=== PATIENT | male | born 1980 | race Caucasian/White ===

== ENCOUNTER 2016-09-15 21:56 | Inpatient (IN) ==
[~2016-09-15 21:56] MED LIST: *HR* Etomidate 40 MG/20 ML VIAL IVP ONE; *HR* Rocuronium Bromide 50 MG/5 ML VIAL IVP ONE
[2016-09-15] MEDS ORDERED: 0.9 % Sodium Chloride 1,000 ML ONE (22:15)
[2016-09-15] MEDS ORDERED: 0.9 % Sodium Chloride 1,000 ML IVC ONE ×2 (22:20→22:38)
[2016-09-15 22:28] LABS: Basophils # 0.1 K/mcL (0.0-0.2); Eosinophils # 0.2 K/mcL (0.0-0.6); Eosinophils % 1.8 %; Hematocrit 44.7 % (37.5-50.1); Hemoglobin 15.5 g/dL (12.9-16.9); Immature Granulocytes % 0.8 % (0-4); Lymphocytes # 4.3 K/mcL (0.6-4.6); Lymphocytes % 42.8 %; Mean Corpuscular HGB Conc 34.7 g/dL (31.6-35.5); Mean Corpuscular Hemoglobin 31.2 pg (28.0-33.3); Mean Corpuscular Volume 89.9 fL (83.0-100.0); Mean Platelet Volume 9.4 fL (9.4-12.4); Monocytes # 0.8 K/mcL (0.0-1.3); Neutrophils # 4.6 K/mcL (1.6-8.9); Platelet Count 206 K/mcL (140-400); Red Blood Count 4.97 M/mcL (4.19-5.50); Red Cell Distribution Width 13.1 % (11.5-14.5); Segmented Neutrophils % 45.6 %
--- NOTE | 2016-09-15 22:29 | Emergency Department Note ---
Overdose - [facility] Narrative Medical decision making narrative: 36-year-old male presents to the ER unresponsive after being found at home. Prior history of drug use. There was a needle at the scene as per EMS. He had an initial GCS of 3 here. Narcan was given without improvement of his symptoms. Patient was intubated for neurologic exam and agonal respirations. His head CT is unremarkable for acute findings. EKG is nonischemic. He was acidotic with a pH of 7.17 and a lactic acidosis of 5.1. He received 2 L of normal saline in the ER and started on LR for maintenance fluid. UDS shows marijuana. Intoxicated with an alcohol level of 277. Patient admitted to the ICU for further management. - Lab Data Lab results reviewed: Yes I reviewed the patient's lab results. Result diagrams: 09/16/16 00:09 09/15/16 22:05 Lab Results 09/15/16 09/15/16 09/15/16 Range/Units 22:05 22:05 22:05 WBC 10.1 (4.3-11.1) K/mcL RBC 4.97 (4.19-5.50) M/mcL Hgb 15.5 (12.9-16.9) g/dL Hct 44.7 (37.5-50.1) % MCV 89.9 (83.0-100.0) fL MCH 31.2 (28.0-33.3) pg MCHC 34.7 (31.6-35.5) g/dL RDW 13.1 (11.5-14.5) % Plt Count 206 (140-400) K/mcL MPV 9.4 (9.4-12.4) fL Immature Gran % 0.8 (0-4) % Seg Neutrophils % 45.6 % Lymphocytes % 42.8 % Monocytes % 8.0 % Eosinophils % 1.8 % Basophils % 1.0 % Neutrophils # 4.6 (1.6-8.9) K/mcL Lymphocytes # 4.3 (0.6-4.6) K/mcL Monocytes # 0.8 (0.0-1.3) K/mcL Eosinophils # 0.2 (0.0-0.6) K/mcL Basophils # 0.1 (0.0-0.2) K/mcL ABG pH (7.32-7.45) pH Units ABG pCO2 (35-45) mmHg ABG pO2 (85-104) mmHg ABG HCO3 (21-27) mEQ/L ABG Total CO2 (20-26) mEq/L ABG O2 Saturation (95-98) % ABG Base Excess (-2.0 to 3.0) mEq/L Carboxyhemoglobin (0-5) % Blood Gas Modality Inspired O2 % Sodium 135 L (136-145) mEq/L Potassium 3.2 L (3.5-4.5) mEq/L Chloride 102 (98-109) mEq/L Carbon Dioxide 16 L (19-29) mEq/L BUN 8 (8-26) mg/dL Creatinine 0.80 (0.72-1.25) mg/dL Est GFR ( Amer) > 60 (> 60) Est GFR (Non-Af Amer) > 60 (> 60) BUN/Creatinine Ratio 10 (6-26) Glucose 117 H (70-99) mg/dL Calculated Osmolality 279 L (280-300) Lactic Acid 5.1 H* (0.5-2.2) mmol/L Calcium 8.6 (8.6-10.8) mg/dL Total Bilirubin 0.5 (0.2-1.2) mg/dL Direct Bilirubin 0.2 (0.0-0.5) mg/dL Indirect Bilirubin 0.3 (0.0-1.2) mg/dL AST 33 (5-34) Units/L ALT 16 (0-55) Units/L Alkaline Phosphatase 73 (38-126) Units/L Serum Total Protein 7.3 (6.0-8.3) g/dL Albumin 3.7 (3.5-5.0) g/dL Globulin 3.6 H (2.4-3.5) g/dL Albumin/Globulin Ratio 1.0 L (1.1-2.2) Urine Color (Yellow) Urine Clarity (Clear) Urine pH (5.0-8.0) pH Units Ur Specific [place] (1.010-1.025) Urine Protein (Neg-Trace) mg/dL Urine Glucose (UA) (Normal) mg/dL Urine Ketones (Negative) mg/dL Urine Blood (Negative) Urine Nitrite (Negative) Urine Bilirubin (Negative) Urine Urobilinogen (Normal) mg/dL Ur Leukocyte Esterase (Negative) Salicylates < 5.0 L (15-30) mg/dL Urine Opiates Screen (Cpmdtv=360) ng/mL Acetaminophen < 1.0 L (10-30) mcg/mL Ur Barbiturates Screen (Bwggwn=216) ng/mL Ur Phencyclidine Scrn (Cutoff=25) ng/mL Ur Amphetamines Screen (Uufcgj=6199) ng/mL U Benzodiazepines Scrn (Glfrqw=419) ng/mL Urine Cocaine Screen (Cutoff= 300) ng/mL U Marijuana (THC) Screen (Cutoff = 50) ng/mL Ethyl Alcohol 277 H (0-10) mg/dL Hep Bs Antigen (Nonreactive) HIV Ag/Ab Combo Qual (Nonreactive) 09/15/16 09/15/16 09/15/16 Range/Units 22:05 22:05 22:15 WBC (4.3-11.1) K/mcL RBC (4.19-5.50) M/mcL Hgb (12.9-16.9) g/dL Hct (37.5-50.1) % MCV (83.0-100.0) fL MCH (28.0-33.3) pg MCHC (31.6-35.5) g/dL RDW (11.5-14.5) % Plt Count (140-400) K/mcL MPV (9.4-12.4) fL Immature Gran % (0-4) % Seg Neutrophils % % Lymphocytes % % Monocytes % % Eosinophils % % Basophils % % Neutrophils # (1.6-8.9) K/mcL Lymphocytes # (0.6-4.6) K/mcL Monocytes # (0.0-1.3) K/mcL Eosinophils # (0.0-0.6) K/mcL Basophils # (0.0-0.2) K/mcL ABG pH (7.32-7.45) pH Units ABG pCO2 (35-45) mmHg ABG pO2 (85-104) mmHg ABG HCO3 (21-27) mEQ/L ABG Total CO2 (20-26) mEq/L ABG O2 Saturation (95-98) % ABG Base Excess (-2.0 to 3.0) mEq/L Carboxyhemoglobin 7.1 H (0-5) % Blood Gas Modality Inspired O2 % Sodium (136-145) mEq/L Potassium (3.5-4.5) mEq/L Chloride (98-109) mEq/L Carbon Dioxide (19-29) mEq/L BUN (8-26) mg/dL Creatinine (0.72-1.25) mg/dL Est GFR ( Amer) (> 60) Est GFR (Non-Af Amer) (> 60) BUN/Creatinine Ratio (6-26) Glucose (70-99) mg/dL Calculated Osmolality (280-300) Lactic Acid (0.5-2.2) mmol/L Calcium (8.6-10.8) mg/dL Total Bilirubin (0.2-1.2) mg/dL Direct Bilirubin (0.0-0.5) mg/dL Indirect Bilirubin (0.0-1.2) mg/dL AST (5-34) Units/L ALT (0-55) Units/L Alkaline Phosphatase (38-126) Units/L Serum Total Protein (6.0-8.3) g/dL Albumin (3.5-5.0) g/dL Globulin (2.4-3.5) g/dL Albumin/Globulin Ratio (1.1-2.2) Urine Color Yellow (Yellow) Urine Clarity Clear (Clear) Urine pH 6.0 (5.0-8.0) pH Units Ur Specific [place] <= 1.005 L (1.010-1.025) Urine Protein Trace (Neg-Trace) mg/dL Urine Glucose (UA) Normal (Normal) mg/dL Urine Ketones Negative (Negative) mg/dL Urine Blood Negative (Negative) Urine Nitrite Negative (Negative) Urine Bilirubin Negative (Negative) Urine Urobilinogen Normal (Normal) mg/dL Ur Leukocyte Esterase Negative (Negative) Salicylates (15-30) mg/dL Urine Opiates Screen (Tpbauf=215) ng/mL Acetaminophen (10-30) mcg/mL Ur Barbiturates Screen (Iustxd=738) ng/mL Ur Phencyclidine Scrn (Cutoff=25) ng/mL Ur Amphetamines Screen (Vwtcux=9600) ng/mL U Benzodiazepines Scrn (Xwufor=714) ng/mL Urine Cocaine Screen (Cutoff= 300) ng/mL U Marijuana (THC) Screen (Cutoff = 50) ng/mL Ethyl Alcohol (0-10) mg/dL Hep Bs Antigen Nonreactive (Nonreactive) HIV Ag/Ab Combo Qual Nonreactive (Nonreactive) 09/15/16 09/15/16 Range/Units 22:15 22:38 WBC (4.3-11.1) K/mcL RBC (4.19-5.50) M/mcL Hgb (12.9-16.9) g/dL Hct (37.5-50.1) % MCV (83.0-100.0) fL MCH (28.0-33.3) pg MCHC (31.6-35.5) g/dL RDW (11.5-14.5) % Plt Count (140-400) K/mcL MPV (9.4-12.4) fL Immature Gran % (0-4) % Seg Neutrophils % % Lymphocytes % % Monocytes % % Eosinophils % % Basophils % % Neutrophils # (1.6-8.9) K/mcL Lymphocytes # (0.6-4.6) K/mcL Monocytes # (0.0-1.3) K/mcL Eosinophils # (0.0-0.6) K/mcL Basophils # (0.0-0.2) K/mcL ABG pH 7.17 L* (7.32-7.45) pH Units ABG pCO2 56 H (35-45) mmHg ABG pO2 498 H (85-104) mmHg ABG HCO3 20.4 L (21-27) mEQ/L ABG Total CO2 22.1 (20-26) mEq/L ABG O2 Saturation 100 H (95-98) % ABG Base Excess -8.8 L (-2.0 to 3.0) mEq/L Carboxyhemoglobin (0-5) % Blood Gas Modality VC Inspired O2 100 % Sodium (136-145) mEq/L Potassium (3.5-4.5) mEq/L Chloride (98-109) mEq/L Carbon Dioxide (19-29) mEq/L BUN (8-26) mg/dL Creatinine (0.72-1.25) mg/dL Est GFR ( Amer) (> 60) Est GFR (Non-Af Amer) (> 60) BUN/Creatinine Ratio (6-26) Glucose (70-99) mg/dL Calculated Osmolality (280-300) Lactic Acid (0.5-2.2) mmol/L Calcium (8.6-10.8) mg/dL Total Bilirubin (0.2-1.2) mg/dL Direct Bilirubin (0.0-0.5) mg/dL Indirect Bilirubin (0.0-1.2) mg/dL AST (5-34) Units/L ALT (0-55) Units/L Alkaline Phosphatase (38-126) Units/L Serum Total Protein (6.0-8.3) g/dL Albumin (3.5-5.0) g/dL Globulin (2.4-3.5) g/dL Albumin/Globulin Ratio (1.1-2.2) Urine Color (Yellow) Urine Clarity (Clear) Urine pH (5.0-8.0) pH Units Ur Specific [place] (1.010-1.025) Urine Protein (Neg-Trace) mg/dL Urine Glucose (UA) (Normal) mg/dL Urine Ketones (Negative) mg/dL Urine Blood (Negative) Urine Nitrite (Negative) Urine Bilirubin (Negative) Urine Urobilinogen (Normal) mg/dL Ur Leukocyte Esterase (Negative) Salicylates (15-30) mg/dL Urine Opiates Screen Negative (Xgcwaa=950) ng/mL Acetaminophen (10-30) mcg/mL Ur Barbiturates Screen Negative (Pcltsf=925) ng/mL Ur Phencyclidine Scrn Negative (Cutoff=25) ng/mL Ur Amphetamines Screen Negative (Qfojhx=5543) ng/mL U Benzodiazepines Scrn Negative (Xpohck=394) ng/mL Urine Cocaine Screen Negative (Cutoff= 300) ng/mL U Marijuana (THC) Screen Positive H (Cutoff = 50) ng/mL Ethyl Alcohol (0-10) mg/dL Hep Bs Antigen (Nonreactive) HIV Ag/Ab Combo Qual (Nonreactive) - Radiology Data Radiology results reviewed: Yes I reviewed the patient's radiology results. Chest X-Ray 09/15/16 22:19 IMPRESSION: The tip of the endotracheal tube is borderline high in position. The lungs are clear. D/ / Anmol Pink MD / Anmol Pink MD Interpreting Provider: Anmol Pink MD Head CT 09/15/16 22:20 IMPRESSION: No acute intracranial abnormality. D/ / Anmol Pink MD / Anmol Pink MD Interpreting Provider: Anmol Pink MD - EKG Data EKG attestation: Yes I reviewed and interpreted this EKG. EKG results narrative: EKG demonstrates sinus rhythm with rate of 95 bpm. Normal axis. RI interval 184 QRS duration [address] elevations or depressions. No acute ischemic findings. No previous EKG for comparison. Overdose HPI - General Chief Complaint: ED Overdose Stated Complaint: Overdose Time Seen by Provider: 09/15/16 22:20 Source: EMS Mode of arrival: EMS Limitations: altered mental status Nursing Notes Reviewed: Yes Vital Signs Reviewed: Yes - History of Present Illness HPI Narrative: 36-year-old male history of former IV drug abuse who presents to the ER via EMS due to unresponsiveness. EMS reports that the patient's contacted 911 after finding him down on the floor. There was a needle at the scene. The patient had previously been clean unknown when his last use was. Patient was provided with 4 mg of Narcan in route without improvement in his mental status. Upon arrival patient had an initial GCS of 3 with posturing of the upper extremities. Teeth are clenched unable to pass a tongue depressor through. Pupils were dilated at 5 mm and sluggishly reactive. Pt Subjective Complaint: other (Unknown) Onset (ago): unknown Timing confirmed by: family member Intent: unknown How Overdose Was Discovered: family/friend present at time Treatments Prior to Arrival: oxygen, narcan (4 mg) - Related Data Allergies Allergy/AdvReac Type Severity Reaction Status Date / Time Unable to Assess Allergy Unverified 09/15/16 23:03 Limitations: ROS unobtainable due to patients medical condition Past Medical History - Past Medical History Attestation: Yes The following information was validated with the patient. Source: other (Obtained from EMS) Medical history: Reports: other (Former IVDU) Surgical history: Reports: non-contributory Psychiatric history: Reports: other - Social History Smoking Status: Unknown if ever smoked Physical Exam - General Limitations: altered mental status General appearance: obtunded - Head Head exam: atraumatic, normocephalic, normal inspection - Eye Eye exam: Present: PERRL (Sluggishly reactive), mydriasis - ENT ENT exam: normal exam - Neck Neck exam: Present: normal inspection - Chest Chest inspection: Present: normal inspection, symmetric chest wall rise - Respiratory Respiratory exam: Present: other (Agonal respirations) - Cardiovascular Cardiovascular exam: Present: regular rate, normal rhythm, normal heart sounds - Abdominal Exam Abdominal exam: Present: soft. Absent: distention, rigidity - Extremities Exam Extremities exam: Present: normal inspection - Expanded Upper Extremity Exam Shoulder exam: Present: normal inspection Arm exam: Present: normal inspection Elbow exam: Present: normal inspection Forearm/Wrist exam: Present: normal inspection Hand exam: Present: normal inspection - Expanded Lower Extremity Exam Hip/Pelvis exam: Present: normal inspection Upper leg exam: Present: normal inspection Knee exam: Present: normal inspection Lower leg exam: Present: normal inspection Ankle exam: Present: normal inspection Foot/toe exam: Present: normal inspection - Neurological Exam Neurological exam: Present: other (Obtunded, unable to assess. GCS of 3) - Expanded Neurological Exam Coma Scale Eye Opening: None Coma Scale Motor Response: None Coma Scale Verbal Response: None Coma Scale Total: 3 - Skin Skin exam: Present: warm, dry, intact, normal color Course Course Narrative: Patient seen and examined at time of arrival. Vital signs reviewed. Initial GCS of 3 with agonal respirations. His exam is inconsistent with here opiate overdose. He has dilated pupils with posturing and agonal respirations. There is a concern for anoxic brain injury. Patient was emergently intubated. We will get a head CT as well as labs, lactate, urine drug screen and ABG. - Reevaluation(s) Reevaluation #1: Patient was moving his head back and forth. Propofol started. Vital Signs Temperature 96.2 F L 09/15/16 21:57 Pulse Rate 96 09/15/16 21:57 Respiratory Rate 16 09/15/16 21:57 Blood Pressure 155/97 09/15/16 21:57 O2 Sat by Pulse Oximetry 93 09/15/16 21:57 Temperature 96.2 F L 09/15/16 21:57 Pulse Rate 71 09/16/16 00:07 Respiratory Rate 12 09/16/16 00:07 Blood Pressure 113/69 09/16/16 00:07 O2 Sat by Pulse Oximetry 96 09/16/16 00:07 Oxygen Delivery Oxygen Delivery Ventilator Procedures - Intubation Time out performed: No sedative: Etomidate Mg Given: 20 paralytic: Rocuronium Mg Given: 100 Laryngoscope: Melly ET Tube Size: 7.5 ET Tube Uncuffed: No Tube Secured Depth (cm): 25 Tube Secured Location: lips Tube Placement Confirmation: visualized tube passing through cords, equal breath sounds bilaterally, no breath sounds over epigastrium, confirmation by capnometry Patient Tolerated Procedure: well Intubation Complications: none Additional Comments: Patient intubated by the medical student under the direct supervision of myself and the attending physician. Critical Care Time Critical Care Time: Yes Total Critical Care Time: 60 Attestation: Critical care performed: Time is exclusive of separately billable procedures. Time includes: direct patient care, patient reassessment, coordination of patient care, interpretation of data (laboratory data, radiology data, and respiratory data), review of patient's medical records, medical consultation and documentation of patient care. Procedures included in critical care time: Procedures excluded from critical care time: Endotracheal intubation Disposition Clinical Impression: Unresponsive, Intoxication, Lactic acidosis Disposition: Admitted As Inpatient Condition: Fair S.B.Jesus - [email or web address] Situation: Demographics, MOA Background: Presenting Complaint, Relevant PMH, Meds, & Allergies Assessment: Vital Signs, Course and respsone to treatment, Exam Concerns, Patient/Family Expectation, Pertinant Lab Results, Outstanding Labs Recommendation: Barrier(s) to disposition, Recommendation based on pending studies, treatments, or consults S.B.AChase Report Given to: Dr. Lorna Gonzalez Repor Time: 23:57 Attestation Statement - Attestation Attestation: I, Naman Otoole MD, personally evaluated this patient and discussed their management with the resident physician. I reviewed the resident's note and agree with the documented findings, medical decision making, and plan of care. 36-year-old male who was found unresponsive. He received 4 mg of Narcan prior to arrival in the emergency department with no response. No further history available initially but later it was learned that apparently was supposed to meet a girlfriend at a hotel room and when she arrived she found him in the hotel room unresponsive on the bathroom floor. She reportedly had been drinking alcohol and taking Neurontin. On arrival here the patient was unresponsive but breathing spontaneously and protecting his airway. Vital signs stable. On exam patient is a well-developed well-nourished male who is unresponsive. There is no cyanosis or diaphoresis. No obvious signs of trauma. No obvious track anderson. Patient has a nasal trumpet in place. Some mild decorticate posturing. Pupils equally round and minimally reactive. 3-4 mm. Mucous membranes are moist. Breath sounds are clear and equal bilaterally. Heart regular with a slight tachycardia. Abdomen soft with normal bowel sounds. Labs reviewed. Chest x-ray negative. Head CT negative. No acute changes on EKG. Tox screen positive only for marijuana. Alcohol level 277. Patient was electively intubated here in the emergency department without difficulty. The hospitalist, Dr. Del Angel, was consulted and accepted admission of the patient.
[2016-09-15] MEDS ORDERED: Propofol 500 MG/50 ML INFUS..BTL IVC SCH (22:30)
[2016-09-15 22:39] LABS: Bilirubin,Urine Negative (Negative); Blood,Urine Negative (Negative); Clarity,Urine Clear (Clear); Color,Urine Yellow (Yellow); Glucose,Urine (UA) Normal (Normal); Ketones,Urine Negative (Negative); Leukocyte Esterase,Urine Negative (Negative); Nitrite,Urine Negative (Negative); Protein,Urine Trace mg/dL (Neg-Trace); Specific Gravity,Urine <= 1.005 (1.010-1.025); Urobilinogen,Urine Normal (Normal)
[2016-09-15 22:40] LABS: Amphetamine Screen,Urine Negative ng/mL (Cutoff=1000); Barbiturate Screen,Urine Negative ng/mL (Cutoff=200); Benzodiazepines Screen,Urine Negative ng/mL (Cutoff=200); Cannabinoid Screen,Urine Positive ng/mL (Cutoff = 50); Cocaine Screen,Urine Negative ng/mL (Cutoff= 300); Opiate Screen,Urine Negative ng/mL (Cutoff=300); Phencyclidine Screen,Urine Negative ng/mL (Cutoff=25)
[2016-09-15 22:40] LABS: Alanine Aminotransferase 16 Units/L (0-55); Albumin 3.7 g/dL (3.5-5.0); Alkaline Phosphatase 73 Units/L (38-126); Aspartate Amino Transferase 33 Units/L (5-34); BUN/Creatinine Ratio 10 (6-26); Bilirubin,Direct 0.2 mg/dL (0.0-0.5); Bilirubin,Indirect 0.3 mg/dL (0.0-1.2); Bilirubin,Total 0.5 mg/dL (0.2-1.2); Blood Urea Nitrogen 8 mg/dL (8-26); Calcium 8.6 mg/dL (8.6-10.8); Carbon Dioxide 16 mEq/L (19-29); Chloride 102 mEq/L (98-109); Ethanol 277 mg/dL (0-10); Globulin 3.6 g/dL (2.4-3.5); Glucose 117 mg/dL (70-99); Osmolality,Calculated 279 (280-300); Potassium 3.2 mEq/L (3.5-4.5); Sodium 135 mEq/L (136-145); Total Protein 7.3 g/dL (6.0-8.3); eGFR For African Americans > 60 (> 60); eGFR For Non-African Americans > 60 (> 60)
[2016-09-15 22:41] LABS: Acetaminophen < 1.0 mcg/mL (10-30); Salicylate < 5.0 mg/dL (15-30)
[2016-09-15 22:52] LABS: ABG Base Excess -8.8 mEq/L (-2.0 to 3.0); ABG HCO3 20.4 mEQ/L (21-27); ABG Oxygen Saturation 100 % (95-98); ABG PCO2 56 mmHg (35-45); ABG PO2 498 mmHg (85-104); ABG TCO2 22.1 mEq/L (20-26)
[2016-09-15 22:54] LABS: ABG PH 7.17 pH Units (7.32-7.45); Blood Gas FiO2 100 %
[2016-09-15 23:05] LABS: Hepatitis B Surface Antigen Nonreactive (Nonreactive)
[2016-09-15] MEDS ORDERED: Ringers Solution, Lactated 1,000 ML IVC SCH (23:30)
[2016-09-15] MEDS ORDERED: D5% in 0.9% NACL w KCl 20 MEQ/1,000 ML MLS IVC SCH (23:45)
[2016-09-15] MEDS ORDERED: Naloxone 0.4 MG/ML INJ IVP PRN (23:53)
[2016-09-15] MEDS ORDERED: Acetaminophen 325 MG TABLET PO PRN (23:53)
[2016-09-15] MEDS ORDERED: Ondansetron 4 MG/2 ML VIAL IVP PRN (23:53)
[2016-09-15] MEDS ORDERED: Lacri-Lube 3.5 GM TUBE BOTH EYES PRN (23:55)
[2016-09-16] LABS: HIV-1&2 Antibody & p24 Ag Nonreactive (Nonreactive)
[2016-09-16 00:16] LABS: Basophils # 0.1 K/mcL (0.0-0.2); Basophils % 1.2 %; Eosinophils # 0.1 K/mcL (0.0-0.6); Eosinophils % 1.9 %; Hematocrit 41.9 % (37.5-50.1); Hemoglobin 14.1 g/dL (12.9-16.9); Immature Platelets 2.4 % (1.1-6.1); Lymphocytes # 1.5 K/mcL (0.6-4.6); Lymphocytes % 22.3 %; Mean Corpuscular HGB Conc 33.7 g/dL (31.6-35.5); Mean Corpuscular Hemoglobin 30.3 pg (28.0-33.3); Mean Corpuscular Volume 89.9 fL (83.0-100.0); Mean Platelet Volume 8.9 fL (9.4-12.4); Monocytes # 0.4 K/mcL (0.0-1.3); Monocytes % 5.9 %; Neutrophils # 4.7 K/mcL (1.6-8.9); Platelet Count 188 K/mcL (140-400); Red Blood Count 4.66 M/mcL (4.19-5.50); Red Cell Distribution Width 12.9 % (11.5-14.5); Segmented Neutrophils % 67.7 %
[2016-09-16] MEDS ORDERED: *HR* Rocuronium Bromide 50 MG/5 ML VIAL IVP ONE (00:44)
[2016-09-16 00:53] LABS: ABG Base Excess -4.6 mEq/L (-2.0 to 3.0); ABG HCO3 22.9 mEQ/L (21-27); ABG Oxygen Saturation 99 % (95-98); ABG PCO2 51 mmHg (35-45); ABG PH 7.26 pH Units (7.32-7.45); ABG PO2 162 mmHg (85-104); ABG TCO2 24.5 mEq/L (20-26)
[2016-09-16 00:54] LABS: Blood Gas FiO2 40 %
--- NOTE | 2016-09-16 01:34 | Internal Med History&Physical ---
Date of Encounter: 09/16/16 Time of Encounter: 01:32 Assessment and Plan (1) Respiratory failure Current visit: Yes Status: Acute Patient was becoming hypoxic in the emergency department. Hence, he was intubated and placed on the mechanical ventilator. History of intravenous drug abuse and heavy alcohol use. Exam reveals pinpoint pupils bilaterally. Patient is wheezing diffusely bilaterally. Laboratory data reveal hypercapnia on the ventilator and lactic acidosis. His serum alcohol level was extremely elevated. Urine tox screen was negative for opiates but was positive for marijuana. Patient is currently on the ventilator. His ABG reveals pH of 7.26 with hypercapnia on ventilator settings of 500/12/5/50% FiO2. Patient's ventilator settings will be adjusted to increase the respiratory rate is 16 for a minute ventilation of 8 L. ABG will be repeated in 30 minutes after the setting changes and ventilator adjusted accordingly. VAP bundle. Proton pump inhibitor intravenously. Breathing treatments. Pulmonology consult. Advance ET tube by 4 cm due to position of 7.7 cm above jammie Qualifiers: Chronicity: acute Respiratory failure complication: hypoxia and hypercapnia Qualified Code(s): J96.01 - Acute respiratory failure with hypoxia ; J96.02 - Acute respiratory failure with hypercapnia (2) Intoxication Current visit: Yes Status: Acute Patient's alcohol level is extremely elevated and he is also positive for marijuana. He was found with a syringe and needle like his bedside although his urine tox screen is negative. Currently intubated and ventilated. (3) Alcohol dependence Current visit: Yes Status: Chronic Currently intoxicated with respiratory failure, lactic acidosis. Due to his history of heavy drinking, we will start him on intravenous vitamin B1 and folic acid. We will need to monitor for alcohol withdrawal seizures and delirium tremens. Qualifiers: Substance use status: with intoxication Complication of substance-induced condition: with delirium Qualified Code(s): F10.221 - Alcohol dependence with intoxication delirium (4) Acidosis, metabolic, with respiratory acidosis Current visit: Yes Status: Acute Patient has mixed respiratory acidosis and anion gap metabolic acidosis. Adjust ventilator settings. Intravenous fluids. Repeat lactic acid level. (5) Polysubstance abuse Current visit: Yes Status: Chronic Internal Medicine - H&P: HPI Chief complaint: Overdose Admitted From: Emergency Dept Plans for Post Hospital Care: Home History of present illness: Mr. Arnold is a 36 year old male with a history of intravenous drug abuse and alcohol dependence who was brought to the emergency department by EMS after he was found intoxicated and overdosed. Patient is currently intubated and mechanical ventilated and sedated and is unable to provide any history. He is currently accompanied by his father. However, the father was not present at the time of the incident and is able to only provide his past medical history and other history. Most of the information was obtained by review of medical records, review of EMS reports and discussion with ER physician. According to EMS report, they were dispatched due to a patient who was unresponsive. When they arrived on the scene, the patient was lying on the floor of the bathroom and partly outside the bathroom. According to EMS reports, Police Department was on-site and a needle was found beside him. His nasal airway was secured and the patient was transported to the emergency department. He received 2 mg of intranasal Narcan in the emergency department with partial response. The patient was able to maintain his saturations for a little while but he started becoming hypoxic. Hence, a decision was made to intubate the patient and the patient was intubated and placed on mechanical ventilator by the ER physician. He was also placed on propofol for sedation. According to EMS reports, the patient was found to be wheezing when they examined him at the Hotel. His blood pressure was in the 190s systolic when they arrived at the scene. According to the father, the patient was spending time with his girlfriend as she was in town today. He reports that the patient has a history of consuming 24 cans of beer every week and is a heavy drinker. The father also reports that the patient has a history of intravenous drug abuse but that he has been clean over the past 2 months. Past Med Surg Social Fam HX - Past Medical History Source: obtained from family Medical history: no medical history, other (Former IVDU) Psychiatric history: other - Past Surgical History Surgical History: non-contributory - Social History Smoking Status: Current every day smoker Alcohol use: heavy Drug use: marijuana Current living situation: Home Activity Level: Independent ambulation Recent Out of Country Travel Within the Last 8 Weeks: No Exposure or Possible Exposure to Illness During Travel: No - Additional Family History Additional family history: Reviewed; not pertinent Internal Medicine - H&P: Meds Allergies Unable to Assess Allergy (Unverified 09/15/16 23:03) Pt non responsive ROS unobtainable: due to endotracheal tube All Systems PM: A 10-system review of systems was performed and is negative for pertinent findings except as documented above in the HPI. - Constitutional Vitals: Temp Pulse Resp BP Pulse Ox 96.2 F L 62 15 121/77 96 09/15/16 21:57 09/16/16 00:51 09/16/16 01:26 09/16/16 01:26 09/16/16 00:51 Exam: Gen.: Lying in bed. Intubated on a ventilator. Sedated. Eyes: Pupils equal and pinpoint bilaterally. ENT: Moist mucous membranes. No oropharyngeal erythema or discharge. Chest: Reduced air entry bilaterally with wheezing diffusely. CVS: First and second heart sounds present. No murmurs, rubs or gallops. Abdomen: Soft, nontender, nondistended. Bowel sounds present. No hepatosplenomegaly. Neville catheter in place. Skin: No decubitus ulcers appreciated. PHYSICIAN OFFICE SECRETARY: Unable to assess due to sedated status. Lymphatic system: No lymphadenopathy appreciated Musculoskeletal: No joint swelling or erythema noted Internal Med - H&P Results - Labs CBC & Chem 7: 09/16/16 00:09 09/15/16 22:05 Labs: Short CBC 09/16/16 Range/Units 00:09 WBC 6.9 (4.3-11.1) K/mcL Hgb 14.1 (12.9-16.9) g/dL Hct 41.9 (37.5-50.1) % Plt Count 188 (140-400) K/mcL Neutrophils # 4.7 (1.6-8.9) K/mcL - ABG Interpretation Interpretation: ABG interpreted by me (Combined respiratory and elevated anion gap metabolic acidosis) ABG results: 09/16/16 00:40 ABG pH 7.26 L ABG pCO2 51 H ABG pO2 162 H ABG HCO3 22.9 ABG Total CO2 24.5 ABG O2 Saturation 99 H ABG Base Excess -4.6 L - EKG Data -: EKG Interpreted by Myself EKG shows normal: sinus rhythm Rate: normal - EKG Data Prior EKG available for review: no - Diagnostic Studies Chest x-ray Status: image reviewed by me (Endotracheal tube about 7.7 cm from the jammie. No acute infiltrates noted)
[2016-09-16] MEDS ORDERED: FentaNYL (PF) 1,000 MCG in 0.9 % Sodium Chloride 80 ML IVC SCH (02:15)
[2016-09-16] MEDS: *HR* Heparin 5,000 UNIT/ML VIAL SQ SCH ×4 (02:20→21:03)
[2016-09-16] MEDS: Lacri-Lube 3.5 GM TUBE BOTH EYES SCH ×3 (02:22→07:56)
[2016-09-16 04:20] LABS: ABG Base Excess -4.6 mEq/L (-2.0 to 3.0); ABG HCO3 23.2 mEQ/L (21-27); ABG Oxygen Saturation 96 % (95-98); ABG PCO2 53 mmHg (35-45); ABG PH 7.25 pH Units (7.32-7.45); ABG PO2 97 mmHg (85-104); ABG TCO2 24.8 mEq/L (20-26)
[2016-09-16 04:21] LABS: Blood Gas FiO2 30 %
[2016-09-16] MEDS ORDERED: methylPREDNISolone 125 MG/2 ML VIAL IVP ONE (04:30)
[2016-09-16] MEDS: Ipratropium 1 PUFF INHALER IH SCH ×2 (05:17→08:36)
[2016-09-16 05:43] LABS: ABG Base Excess -4.5 mEq/L (-2.0 to 3.0); ABG HCO3 21.7 mEQ/L (21-27); ABG Oxygen Saturation 97 % (95-98); ABG PCO2 43 mmHg (35-45); ABG PH 7.31 pH Units (7.32-7.45); ABG PO2 99 mmHg (85-104); Blood Gas FiO2 30 %; Blood Gas PEEP 5 cm H2O; Blood Gas Respiration Rate 20; Blood Gas VT 500 cc
[2016-09-16 07:08] LABS: BUN/Creatinine Ratio 8 (6-26); Calcium 7.6 mg/dL (8.6-10.8); Carbon Dioxide 20 mEq/L (19-29); Chloride 109 mEq/L (98-109); Glucose 99 mg/dL (70-99); Osmolality,Calculated 281 (280-300); Potassium 3.6 mEq/L (3.5-4.5); Sodium 137 mEq/L (136-145); eGFR For African Americans > 60 (> 60); eGFR For Non-African Americans > 60 (> 60)
[2016-09-16 07:11] LABS: Blood Urea Nitrogen 5 mg/dL (8-26)
--- NOTE | 2016-09-16 07:22 | Pulmonology Consult Note ---
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 Patient also has a history of heavy alcohol use. Patient was found unresponsive in his hotel room, UDS positive only for marijuana. Alcohol level 277. Patient states that he drank 12 beers after work, has a history of drinking heavily. Is currently stable although a slight tremor is noted. Will initiate seawall protocol as I anticipate the patient to have alcohol withdrawal. Pulmonary: The patient was extubated successfully this morning. Lungs are clear to auscultation. Stable after extubation Cardiovascular: RRR, normotensive, stable GI: Nutrition: Patient tolerating clear liquid diet and advance as tolerated. Hepatitis B and C positive, this is a new diagnosis for the patient. The patient was made aware of his diagnosis and need for follow-up with GI was discussed with both him and the hospitalist team who accepted the patient. Recommend outpatient follow-up for new diagnosis of hepatitis B and C Renal: Creatinine stable, Neville catheter removed, patient voiding ID: No leukocytosis or evidence of infection Heme/Onc: H&H stable DVT Prophylaxis heparin subcutaneous Endocrine: Blood glucose stable Lines: all lines checked and no evidence of infections Skin: skin care to prevent pressure ulcers per nursing routine care. She is stable for transfer out of the ICU, the patient's case has been discussed with the hospitalist team who has accepted him for further care. CODE STATUS: Full code (2) Acidosis, metabolic, with respiratory acidosis Current Visit: Yes Status: Acute (3) Intoxication Current Visit: Yes Status: Acute (4) Alcohol dependence Current Visit: Yes Status: Chronic Qualifiers: Substance use status: with intoxication Complication of substance-induced condition: with delirium Qualified Code(s): F10.221 - Alcohol dependence with intoxication delirium (5) Hepatitis B Current Visit: Yes Status: Acute (6) Hepatitis C Current Visit: Yes Status: Acute Qualifiers: Viral hepatitis chronicity: unspecified Qualified Code(s): B19.20 - Unspecified viral hepatitis C without hepatic coma History of Present Illness Consult date: 09/16/16 Requesting physician: Kevyn Del Angel Reason for consult: other (respiratory failure) Chief complaint: Overdose History of present illness: Mr. Arnold is a 36-year-old male with a history of IV drug abuse and alcohol dependence who presented to the emergency department by EMS yesterday after he was found intoxicated with a suspected overdose. The patient was intubated in the emergency department and brought to the ICU on a ventilator overnight. Per records the EMS found the patient lying on the floor of the bathroom of his hotel room. The police were on site and the needle was from side the patient. A nasal airway was secured on scene and the patient was transported to the emergency department. He received 2 mg of Narcan intranasally in the ER with a partial response. The patient was able to initially maintain his saturations however he became hypoxic and was intubated and placed on a mechanical ventilator. Patient was placed on propofol for sedation. The patient was initially hypertensive with a systolic blood pressure in the 190s on scene. According to records the father states that the patient was spending time with his girlfriend while she was in town, and has a history of consuming 24 cans of beer every week and is a heavy drinker. Per patient's father he has a history of IV drug abuse but has been clean for 2 months. This morning the patient was awake trying to sit up in bed. He was placed on CPAP mode successfully and then extubated shortly after. He states that after work yesterday he drank a 12 pack of Budweiser. He does not claim to have any medical problems except for allergies. He does state that he took his Benadryl last night. He denies any IV drug use, snorting any drugs, taking any pills. He does state that he smokes marijuana. He does not recall the events prior to becoming unresponsive. The last thing he remembers drinking with his boss. He states that he did feel nauseated and very hot. He denies any recent illness, headache, dizziness, chest pain, shortness of breath, belly pain, dysuria. Past Med Surg Social Fam HX - Past Medical History Medical history: no medical history, other (Former IVDU) Psychiatric history: other - Past Surgical History Surgical History: non-contributory - Social History Smoking Status: Current every day smoker Alcohol use: heavy Drug use: marijuana Medications and Allergies HYDROcodone/Acet 5/325 mg [Tamms 5-325 mg] 1 tab PO Q4-6H PRN #4 tab 05/12/16 [ Rx] Ibuprofen [Motrin] 600 mg PO Q6-8H PRN #30 tab 05/12/16 [Rx] Allergies No Known Allergies Allergy (Verified 11/10/15 23:36) All Systems: A 10-system review of systems was performed and is negative for pertinent findings except as documented above in the HPI. - Constitutional Constitutional: no chills, no headache(s) Physical Examination Vital Signs: Vital Signs, Last 4 Hours Temp Pulse Resp BP Pulse Ox 09/16/16 07:00 59 20 102/67 97 09/16/16 06:00 57 20 96/53 97 09/16/16 05:21 20 98 09/16/16 05:00 58 20 86/46 95 09/16/16 04:20 56 09/16/16 04:00 97.6 F 56 16 106/60 95 09/16/16 03:59 16 95 General appearance: no acute distress, alert Eyes: nonicteric ENT: oropharynx moist Neck: supple, no lymphadenopathy Effort: normal Inspection: normal Auscultation: bilateral: clear Cardiovascular: regular rate and rhythm Gastrointestinal: normoactive bowel sounds, soft, non-tender, non-distended Extremities: no cyanosis, no edema, no clubbing, pink and warm, pulses normal Musculoskeletal: no deformities normal mental status, non-focal exam, pupils equal and round, CN II-XII normal, motor strength normal and symmetric, other mood appropriate, affect normal (Slight resting tremor noted) Ventilator Settings Ventilator Settings: Ventilator Settings, Last 8 Hours Ventilator Mode VC+ Ventilator Mode VC+ Ventilator Mode VC+ Ventilator Mode VC+ Ventilator Mode VC+ Ventilator Mode VC+ Ventilator Mode VC+ Ventilator Mode VC+ Ventilator Mode VC+ Ventilator Mode VC+ Ventilator Mode VC+ Ventilator Mode VC+ Ventilator Mode VC+ Ventilator Mode VC+ Ventilator Tidal Volume 500 Setting Ventilator Tidal Volume 500 Setting Ventilator Tidal Volume 500 Setting Ventilator Tidal Volume 500 Setting Ventilator Tidal Volume 500 Setting Ventilator Tidal Volume 500 Setting Ventilator Tidal Volume 500 Setting Ventilator Tidal Volume 500 Setting Ventilator Tidal Volume 500 Setting Ventilator Tidal Volume 500 Setting Ventilator Tidal Volume 500 Setting Ventilator Tidal Volume 500 Setting Ventilator Tidal Volume 500 Setting Ventilator Tidal Volume 500 Setting Ventilator Respiratory Rate 20 Setting Ventilator Respiratory Rate 20 Setting Ventilator Respiratory Rate 20 Setting Ventilator Respiratory Rate 20 Setting Ventilator Respiratory Rate 20 Setting Ventilator Respiratory Rate 16 Setting Ventilator Respiratory Rate 16 Setting Ventilator Respiratory Rate 16 Setting Ventilator Respiratory Rate 16 Setting Ventilator Respiratory Rate 16 Setting Ventilator Respiratory Rate 12 Setting Ventilator Respiratory Rate 12 Setting Ventilator Respiratory Rate 12 Setting Actual Respiratory Rate 20 Actual Respiratory Rate 20 Actual Respiratory Rate 20 Actual Respiratory Rate 20 Actual Respiratory Rate 16 Actual Respiratory Rate 16 Actual Respiratory Rate 16 Actual Respiratory Rate 16 Actual Respiratory Rate 19 Actual Respiratory Rate 24 Actual Respiratory Rate 16 Positive End Expiratory 5 Pressure Positive End Expiratory 5 Pressure Positive End Expiratory 5 Pressure Positive End Expiratory 5 Pressure Positive End Expiratory 5 Pressure Positive End Expiratory 5 Pressure Positive End Expiratory 5 Pressure Positive End Expiratory 5 Pressure Positive End Expiratory 5 Pressure Positive End Expiratory 5 Pressure Positive End Expiratory 5 Pressure Positive End Expiratory 5 Pressure Positive End Expiratory 5 Pressure Positive End Expiratory 5 Pressure Peak Inspiratory Airway 22 Pressure Peak Inspiratory Airway 23 Pressure Peak Inspiratory Airway 23 Pressure Peak Inspiratory Airway 25 Pressure Peak Inspiratory Airway 22 Pressure Peak Inspiratory Airway 22 Pressure Peak Inspiratory Airway 24 Pressure Peak Inspiratory Airway 22 Pressure Peak Inspiratory Airway 19 Pressure Peak Inspiratory Airway 22 Pressure Peak Inspiratory Airway 22 Pressure Results - Laboratory Findings CBC and BMP: 09/16/16 00:09 09/16/16 06:49 ABG ABG pH 7.31 pH Units (7.32-7.45) L 09/16/16 05:35 ABG pCO2 43 mmHg (35-45) 09/16/16 05:35 ABG pO2 99 mmHg (85-104) 09/16/16 05:35 ABG O2 Saturation 97 % (95-98) 09/16/16 05:35 Abnormal lab findings: Abnormal lab results MPV 8.9 fL (9.4-12.4) L 09/16/16 00:09 ABG pH 7.31 pH Units (7.32-7.45) L 09/16/16 05:35 ABG Base Excess -4.5 mEq/L (-2.0 to 3.0) L 09/16/16 05:35 Carboxyhemoglobin 7.1 % (0-5) H 09/15/16 22:05 BUN 5 mg/dL (8-26) L 09/16/16 06:49 Creatinine 0.62 mg/dL (0.72-1.25) L 09/16/16 06:49 Calcium 7.6 mg/dL (8.6-10.8) L 09/16/16 06:49 Globulin 3.6 g/dL (2.4-3.5) H 09/15/16 22:05 Albumin/Globulin Ratio 1.0 (1.1-2.2) L 09/15/16 22:05 Ur Specific [place] <= 1.005 (1.010-1.025) L 09/15/16 22:15 Salicylates < 5.0 mg/dL (15-30) L 09/15/16 22:05 Acetaminophen < 1.0 mcg/mL (10-30) L 09/15/16 22:05 U Marijuana (THC) Screen Positive ng/mL (Cutoff = 50) H 09/15/16 22:15 Ethyl Alcohol 277 mg/dL (0-10) H 09/15/16 22:05 - Diagnostic Findings Chest x-ray: image reviewed Additional studies: Head CT 09/15/16 22:20 IMPRESSION: No acute intracranial abnormality. D/ / Anmol Pink MD / Anmol Pink MD Interpreting Provider: Anmol Pink MD Chest X-Ray 09/16/16 02:07 IMPRESSION: 1. Appropriate positions of endotracheal and orogastric tubes. 2. No acute cardiopulmonary disease. D/ / Jericho Hsieh MD / Jericho Hsieh MD Interpreting Provider: Jericho Hsieh MD - Clinical Findings Intake & Output: Intake & Output 09/15/16 09/15/16 09/16/16 15:59 23:59 07:59 Intake Total 1210 / 1210 Output Total 1250 / 1250 Balance -40 / -40 Weight 77.5 kg Consult Discharge Plan - Plan Referrals: NO,PCP [Primary Care Provider] - <Rojas Multani W - Last Filed: 09/16/16 15:57> Date of Encounter: 09/16/16 All Systems: A 10-system review of systems was performed and is negative for pertinent findings except as documented above in the HPI. Physical Examination Vital Signs: Vital Signs, Last 4 Hours Temp Pulse Resp BP Pulse Ox 09/16/16 09:00 80 14 132/90 95 09/16/16 08:16 96.6 F L 09/16/16 08:05 80 14 132/90 95 09/16/16 08:00 64 14 139/82 99 09/16/16 07:50 61 09/16/16 07:00 59 20 102/67 97 Ventilator Settings Ventilator Settings: Ventilator Settings, Last 8 Hours Ventilator Mode CPAP Ventilator Mode VC+ Ventilator Mode VC+ Ventilator Mode VC+ Ventilator Mode VC+ Ventilator Mode VC+ Ventilator Mode VC+ Ventilator Mode VC+ Ventilator Mode VC+ Ventilator Mode VC+ Ventilator Tidal Volume 500 Setting Ventilator Tidal Volume 500 Setting Ventilator Tidal Volume 500 Setting Ventilator Tidal Volume 500 Setting Ventilator Tidal Volume 500 Setting Ventilator Tidal Volume 500 Setting Ventilator Tidal Volume 500 Setting Ventilator Tidal Volume 500 Setting Ventilator Tidal Volume 500 Setting Ventilator Respiratory Rate 20 Setting Ventilator Respiratory Rate 20 Setting Ventilator Respiratory Rate 20 Setting Ventilator Respiratory Rate 20 Setting Ventilator Respiratory Rate 20 Setting Ventilator Respiratory Rate 16 Setting Ventilator Respiratory Rate 16 Setting Ventilator Respiratory Rate 16 Setting Ventilator Respiratory Rate 16 Setting Actual Respiratory Rate 14 Actual Respiratory Rate 20 Actual Respiratory Rate 20 Actual Respiratory Rate 20 Actual Respiratory Rate 20 Actual Respiratory Rate 16 Actual Respiratory Rate 16 Actual Respiratory Rate 16 Positive End Expiratory 5 Pressure Positive End Expiratory 5 Pressure Positive End Expiratory 5 Pressure Positive End Expiratory 5 Pressure Positive End Expiratory 5 Pressure Positive End Expiratory 5 Pressure Positive End Expiratory 5 Pressure Positive End Expiratory 5 Pressure Positive End Expiratory 5 Pressure Positive End Expiratory 5 Pressure Peak Inspiratory Airway 12 Pressure Peak Inspiratory Airway 22 Pressure Peak Inspiratory Airway 23 Pressure Peak Inspiratory Airway 23 Pressure Peak Inspiratory Airway 25 Pressure Peak Inspiratory Airway 22 Pressure Peak Inspiratory Airway 22 Pressure Peak Inspiratory Airway 24 Pressure Results - Laboratory Findings CBC and BMP: 09/16/16 00:09 09/16/16 06:49 ABG ABG pH 7.36 pH Units (7.32-7.45) 09/16/16 08:43 ABG pCO2 43 mmHg (35-45) 09/16/16 08:43 ABG pO2 79 mmHg (85-104) L 09/16/16 08:43 ABG O2 Saturation 95 % (95-98) 09/16/16 08:43 Abnormal lab findings: Abnormal lab results MPV 8.9 fL (9.4-12.4) L 09/16/16 00:09 ABG pO2 79 mmHg (85-104) L 09/16/16 08:43 Carboxyhemoglobin 7.1 % (0-5) H 09/15/16 22:05 BUN 5 mg/dL (8-26) L 09/16/16 06:49 Creatinine 0.62 mg/dL (0.72-1.25) L 09/16/16 06:49 Calcium 7.6 mg/dL (8.6-10.8) L 09/16/16 06:49 Globulin 3.6 g/dL (2.4-3.5) H 09/15/16 22:05 Albumin/Globulin Ratio 1.0 (1.1-2.2) L 09/15/16 22:05 Ur Specific [place] <= 1.005 (1.010-1.025) L 09/15/16 22:15 Salicylates < 5.0 mg/dL (15-30) L 09/15/16 22:05 Acetaminophen < 1.0 mcg/mL (10-30) L 09/15/16 22:05 U Marijuana (THC) Screen Positive ng/mL (Cutoff = 50) H 09/15/16 22:15 Ethyl Alcohol 277 mg/dL (0-10) H 09/15/16 22:05 - Clinical Findings Intake & Output: Intake & Output 09/15/16 09/16/16 09/16/16 23:59 07:59 15:59 Intake Total 1300.5 / 1300.5 1000 / 1000 Output Total 1250 / 1250 600 / 600 Balance 50.5 / 50.5 400 / 400 Weight 77.5 kg - Attending Attestation I examined this patient and my medical decision-making was reviewed with the VETERINARY INSPECTOR/PA/Advanced Practice Nurse/Resident Physician. I agree with the documented findings, disposition and treatment plan as described except to the extent set forth below. Patient seen and examined at bedside Labs, radiology, chart personally reviewed. All lines examined without evidence of infection. Neuropsych: found obtunded etoh abuse ct head WNL. no focal deficits. Follows commands now. CIWA. 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 Wean to [place] Fio2. Start BDs for suspected obstructive lung disease. Cards: MAP > 60 cont to monitor on Tele FEN-GI: monitor electrolytes and replace as needed , Hep B/C positive outpatient f/u. Renal: No LEANDER ID: no clear evidence of infection. Monitor Heme/Onc: DVT prophylaxis given Endo: glucose monitored Integ/MSK: skin care per routine CODE: Full; social service consult. Transfer to general medicine for ongoing care.
[2016-09-16 08:51] LABS: ABG Base Excess -1.3 mEq/L (-2.0 to 3.0); ABG HCO3 24.3 mEQ/L (21-27); ABG Oxygen Saturation 95 % (95-98); ABG PCO2 43 mmHg (35-45); ABG PH 7.36 pH Units (7.32-7.45); ABG PO2 79 mmHg (85-104); ABG TCO2 25.6 mEq/L (20-26)
[2016-09-16 08:53] LABS: Blood Gas FiO2 28 %; Blood Gas Liter Flow 2 L/MIN
[2016-09-16] MEDS ORDERED: Folic Acid 1 MG in D5% in Water 50 ML IVPB SCH (09:00)
[2016-09-16] MEDS ORDERED: Pantoprazole 40 MG VIAL IVPB SCH (09:00)
[2016-09-16] MEDS ORDERED: Thiamine (B-1) 100 MG in D5% in Water 50 ML IVPB SCH (09:00)
[2016-09-16] MEDS ORDERED: Thiamine (B-1) 100 MG, Folic Acid 1 MG, MVI, adult with vitamin K 10 ML in 0.9 % Sodi... IVPB SCH (09:00)
[2016-09-16] MEDS ORDERED: Chlorhexidine Rinse 15 ML MOUTHWASH MM SCH (09:00)
[2016-09-16] MEDS ORDERED: D5% in 0.9% NACL w KCl 20 MEQ/1,000 ML MLS IVC SCH (09:21)
[2016-09-16 10:19] LABS: Hepatitis A Antibody IgM Nonreactive (Nonreactive)
[2016-09-16 10:34] LABS: Hepatitis B Core IgM Reactive (Nonreactive); Hepatitis C Virus Antibody Reactive (Nonreactive)
[2016-09-16] MEDS ORDERED: *HR* LORazepam 2 MG/ML VIAL IVP PRN ×6 (11:08→11:36)
[2016-09-16] MEDS ORDERED: Acetaminophen 325 MG TABLET PO PRN (11:36)
[2016-09-16] MEDS ORDERED: Ondansetron 4 MG/2 ML VIAL IVP PRN (11:36)
[2016-09-16] MEDS ORDERED: Naloxone 0.4 MG/ML INJ IVP PRN (11:36)
[2016-09-16 12:26] LABS: Magnesium 1.5 mg/dL (1.6-2.6)
[2016-09-16] MEDS ORDERED: methylPREDNISolone 125 MG/2 ML VIAL IVP SCH (12:30)
[2016-09-16] MEDS ORDERED: Water for inj. (sterile) 10 ML IV ONE (15:51)
[2016-09-16] MEDS: Nicotine 21 MG PATCH.TD24 TD SCH (17:34)
[2016-09-16] MEDS: D5% in 0.9% NACL w KCl 20 MEQ/1,000 ML MLS IVC SCH (19:44)
[2016-09-17] MEDS: *HR* Heparin 5,000 UNIT/ML VIAL SQ SCH (05:47)
[2016-09-17] MEDS: D5% in 0.9% NACL w KCl 20 MEQ/1,000 ML MLS IVC SCH (05:47)
[2016-09-17] MEDS ORDERED: Folic Acid 1 MG TABLET PO SCH ×2 (09:00)
[2016-09-17] MEDS ORDERED: Thiamine (B-1) 100 MG, Folic Acid 1 MG, MVI, adult with vitamin K 10 ML in 0.9 % Sodi... IVPB SCH (09:00)
--- NOTE | 2016-09-17 09:05 | Electrocardiograph Report ---
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
[2016-09-17] MEDS: Nicotine 21 MG PATCH.TD24 TD SCH (09:09)
[2016-09-17 09:10] LABS: Eosinophils # 0.1 K/mcL (0.0-0.6); Hematocrit 40.8 % (37.5-50.1); Immature Platelets 3.9 % (1.1-6.1); Mean Corpuscular HGB Conc 34.3 g/dL (31.6-35.5); Mean Corpuscular Hemoglobin 30.8 pg (28.0-33.3); Mean Corpuscular Volume 89.9 fL (83.0-100.0); Mean Platelet Volume 9.9 fL (9.4-12.4); Monocytes # 0.4 K/mcL (0.0-1.3); Platelet Count 135 K/mcL (140-400); Red Blood Count 4.54 M/mcL (4.19-5.50); Red Cell Distribution Width 13.2 % (11.5-14.5)
[2016-09-17 09:21] LABS: BUN/Creatinine Ratio 6 (6-26); Blood Urea Nitrogen 4 mg/dL (8-26); Calcium 8.4 mg/dL (8.6-10.8); Carbon Dioxide 27 mEq/L (19-29); Chloride 106 mEq/L (98-109); Glucose 88 mg/dL (70-99); Osmolality,Calculated 282 (280-300); Potassium 3.9 mEq/L (3.5-4.5); Sodium 138 mEq/L (136-145); eGFR For African Americans > 60 (> 60); eGFR For Non-African Americans > 60 (> 60)
[2016-09-17 09:36] LABS: Lymphocytes # 1.6 K/mcL (0.6-4.6); Neutrophils # 4.2 K/mcL (1.6-8.9); Platelet Estimate Normal (Normal)
[2016-09-17 11:06] VITALS: BP 158/91
--- NOTE | 2016-09-17 12:38 | Discharge Summary ---
Date of Encounter: 09/17/16 Time of Encounter: 12:36 - Discharge Diagnosis (1) Hepatitis B Priority: Primary Status: Acute Qualifiers: Viral hepatitis chronicity: unspecified Hepatic coma status: without hepatic coma Hepatitis delta agent presence: without delta-agent Qualified Code(s): B19.10 - Unspecified viral hepatitis B without hepatic coma (2) Hepatitis C Priority: Primary Status: Acute Qualifiers: Viral hepatitis chronicity: unspecified Hepatic coma status: without hepatic coma Qualified Code(s): B19.20 - Unspecified viral hepatitis C without hepatic coma (3) Polysubstance abuse Priority: Secondary Status: Chronic (4) Alcohol dependence Priority: Secondary Status: Chronic Qualifiers: Substance use status: with intoxication Complication of substance-induced condition: with delirium Qualified Code(s): F10.221 - Alcohol dependence with intoxication delirium (5) Respiratory failure Priority: Primary Status: Acute Qualifiers: Chronicity: acute Respiratory failure complication: hypoxia and hypercapnia Qualified Code(s): J96.01 - Acute respiratory failure with hypoxia ; J96.02 - Acute respiratory failure with hypercapnia - Discharge Medications Prescriptions: Folic Acid 1 mg PO DAILY #30 tablet Thiamine (B-1) [Vitamin B-1] 100 mg PO DAILY #30 tablet Home Medications: HYDROcodone/Acet 5/325 mg [[place] 5-325 mg] 1 tab PO Q4-6H PRN #4 tab 05/12/16 [ Rx] Ibuprofen [Motrin] 600 mg PO Q6-8H PRN #30 tab 05/12/16 [Rx] Folic Acid 1 mg PO DAILY #30 tablet 09/17/16 [Rx] Thiamine (B-1) [Vitamin B-1] 100 mg PO DAILY #30 tablet 09/17/16 [Rx] Allergies/Adverse Reactions: Allergies No Known Allergies Allergy (Verified 11/10/15 23:36) Date of admission: 09/16/16 00:07 Primary care physician: PCP NO Discharging clinician: Marcelino Mederos Anticipated date of discharge: 09/17/16 - Patient Status Disposition: Home, Self-Care Condition: Fair Functional capacity at discharge: independent ambulation Overall status at discharge: patient is back to baseline - Discharge Instructions Instructions: Alcohol Dependence (GEN) Follow Up With: NO,PCP [Primary Care Provider] - (Patient does not have a PCP, provided patient with a [facility] Find a Physician card.) - Diet and Activity Activity: resume usual activities as tolerated Diet: advance to your usual diet Interval History: Mr. Arnold is a 36-year-old male with a history of IV drug abuse and alcohol dependence who presented to the emergency department by EMS yesterday after he was found intoxicated with a suspected overdose. The patient was intubated in the emergency department and brought to the ICU on a ventilator overnight. This morning the patient was awake trying to sit up in bed. He was placed on CPAP mode successfully and then extubated shortly after. He states that after work yesterday he drank a 12 pack of Budweiser. He does not claim to have any medical problems except for allergies. He does state that he took his Benadryl last night. He denies any IV drug use, snorting any drugs, taking any pills. He does state that he smokes marijuana. He does not recall the events prior to becoming unresponsive. The last thing he remembers drinking with his boss. He denies any recent illness, headache, dizziness, chest pain, shortness of breath, belly pain, dysuria. he was transferred to medical floors and was observed overnight. HE did well with no signs of alcohol withdrawal. HE has no complains this morning, he will f/u with PCP (new diagnosis of hep B and C) as OP. he is being dc in stable condition. Hospital course: Mr. Arnold is a 36 year old male - Time Spent with Patient Total time spent providing and/or coordinating discharge services: - Constitutional Vitals: Temp Pulse Resp BP Pulse Ox 97.8 F 63 16 158/91 99 09/17/16 11:03 09/17/16 11:03 09/17/16 11:03 09/17/16 11:03 09/17/16 11:03 General appearance: Present: A&O X 3, no acute distress Exam: Eyes: nonicteric ENT: oropharynx moist Neck: supple, no lymphadenopathy Effort: normal Inspection: normal Auscultation: bilateral: clear Cardiovascular: regular rate and rhythm Gastrointestinal: normoactive bowel sounds, soft, non-tender, non-distended Extremities: no cyanosis, no edema, no clubbing, pink and warm, pulses normal Musculoskeletal: no deformities normal mental status, non-focal exam, pupils equal and round, CN II-XII normal, motor strength normal and symmetric, other mood appropriate, affect normal
[2016-09-20] MEDS ORDERED: Thiamine (B-1) 100 MG TABLET PO SCH (09:00)
== END 2016-09-17 13:22 | disposition home or self-care (01) | DRG 133 ==
LOC: EMEROO 21:56 → ICNU 09-16 00:07 → MERGE 09-16 00:07 → ICNU 09-16 01:30 → 3ANU 09-16 12:36
PROVIDERS: ADMIT Internal Medicine Sleep Medicine; ATTEND Internal Medicine